=== PATIENT | male | born 1970 | race Caucasian/White ===

== ENCOUNTER 2017-04-23 18:44 | Emergency (ER) | payer OTHER ==
[~2017-04-23] VITALS: Ht 185.4 cm; Wt 83.0 kg
[2017-04-23] MEDS ORDERED: IOHEXOL 350 MG/ML 10 ML VIAL (for RAD DIAG) IVCONTRAST ONE (18:45)
[2017-04-23 19:15] VITALS: BP 141/87; PULSE 72; RESP 18; TEMP 97.7; O2SAT 99
[2017-04-23] MEDS ORDERED: PAXI10TA2 PO (19:23)
[2017-04-23] MEDS ORDERED: SYMB80AE INH (19:23)
[2017-04-23] MEDS ORDERED: MONT10TA2 PO (19:23)
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
[2017-04-23] MEDS ORDERED: SODIUM CHLORIDE 0.9% FLUSH 10 ML FLUSH IVF PRN (19:45)
[2017-04-23] MEDS ORDERED: SODIUM CHLOR 0.9% 1000 ML INJ 1,000 ML IV ONE (19:45)
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
[2017-04-23 21:14] LABS: AUTOMATED NEUTROPHIL # 10.6 TH/MM3 (1.8-7.7); BASOPHIL # 0.1 TH/MM3 (0-0.2); BASOPHIL % 0.4 % (0.0-2.0); EOSINOPHIL # 0.2 TH/MM3 (0-0.4); EOSINOPHIL % 1.2 % (0.0-4.0); HEMATOCRIT 41.4 % (39.0-51.0); HEMO FLAGS DIFF FINAL; LYMPH % 8.9 % (9.0-44.0); LYMPHOCYTE # 1.2 TH/MM3 (1.0-4.8); MEAN CELL VOLUME 91.6 FL (80.0-100.0); MEAN CORPUSCULAR HEMOGLOBIN 30.4 PG (27.0-34.0); MEAN CORPUSCULAR HGB CONC 33.2 % (32.0-36.0); MONO % 8.3 % (0.0-8.0); NEUT % 81.2 % (16.0-70.0); PLATELET COUNT 256 TH/MM3 (150-450); RED BLOOD COUNT 4.52 MIL/MM3 (4.50-5.90); RED CELL DISTRIBUTION WIDTH 13.4 % (11.6-17.2)
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
[2017-04-23 21:24] VITALS: BP 142/90; PULSE 98; RESP 14; O2SAT 98
[2017-04-23 21:24] LABS: APTT (PATIENT) 22.2 SEC (24.3-30.1); PROTHROMBIN TIME - PATIENT 10.7 SEC (9.8-11.6)
[2017-04-23 21:25] LABS: ANION GAP 5 MEQ/L (5-15); BICARBONATE 30.2 MEQ/L (21.0-32.0); BLOOD UREA NITROGEN 15 MG/DL (7-18); CHLORIDE 102 MEQ/L (98-107); GLOMERULAR FILTRATION RATE 75 ML/MIN (>89); POTASSIUM 3.8 MEQ/L (3.5-5.1); SODIUM (NA) 137 MEQ/L (136-145)
[2017-04-23 21:29] LABS: ALCOHOL LESS THAN 3 MG/DL (0-5)
[2017-04-23 23:06] VITALS: BP 137/79
[2017-04-23] MEDS ORDERED: PERC5TAB12 PO (23:10)
== END 2017-04-23 23:40 | disposition home or self-care (01) ==
LOC: NEPC 18:44
DX: S42.025A Nondisplaced fracture of shaft of left clavicle, initial encounter for closed fracture (principal); R51 Headache; Z72.0 Tobacco use; Z79.899 Other long term (current) drug therapy; Z87.39 Personal history of other diseases of the musculoskeletal system and connective tissue; Z86.59 Personal history of other mental and behavioral disorders; V89.2XXA Person injured in unspecified motor-vehicle accident, traffic, initial encounter
CPT/HCPCS: 70450; 71010; 71260; 72125; 72170; 73000; 74177; 80048; 80307; 85025; 85610; 85730; 99285; J7030; Q9967

== ENCOUNTER 2017-05-01 10:29 | Emergency (ER) | payer OTHER ==
[~2017-05-01] VITALS: Ht 185.4 cm; Wt 80.0 kg
[~2017-05-01 10:29] MED LIST: MONT10TA2 PO; PAXI10TA2 PO; PERC5TAB12 PO; SYMB80AE INH
[2017-05-01 10:30] VITALS: BP 143/100; PULSE 73; RESP 16; TEMP 97.7; O2SAT 100
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
== END 2017-05-01 10:51 | disposition left against medical advice (07) ==
LOC: NEPK 10:29
DX: S42.022D Displaced fracture of shaft of left clavicle, subsequent encounter for fracture with routine healing (principal); V89.2XXD Person injured in unspecified motor-vehicle accident, traffic, subsequent encounter
CPT/HCPCS: 99281